=== PATIENT | female | born 2000 | race Hispanic/Latino ===

== ENCOUNTER 2023-10-11 08:25 | Day surgery (SDC) | payer OTHER ==
[2023-10-10 09:35] VITALS: BMI 25.9
[2023-10-11] MEDS ORDERED: PROPOFOL 20 ML ONE (09:05)
[2023-10-11] MEDS ORDERED: fentaNYL PF 100 MCG/2 ML SYRINGE ONE (09:05)
[2023-10-11] MEDS ORDERED: Oxymetazoline HCl 0.05% (30 ML BOT) ONE ×2 (09:34→10:14)
[2023-10-11 10:07] LABS: Hematocrit 44.6 % (36.0-47.0)
[2023-10-11] MEDS ORDERED: EPINEPHrine 1 MG/ML VIAL ONE (10:14)
[2023-10-11] MEDS ORDERED: Ferric Subsulfate 8 ML TOPICAL SOLN ONE (10:14)
[2023-10-11] MEDS ORDERED: Lidocaine 1% (PF) 30 ML VIAL ONE (10:14)
[2023-10-11] MEDS ORDERED: Ondansetron PF 4 MG/2 ML Vial ONE (10:45)
[2023-10-11] MEDS ORDERED: PHENYLEPHRINE-NS 100 MCG/ML 10 ML SYRINGE ONE (11:08)
[2023-10-11] MEDS ORDERED: fentaNYL 50 mcg/mL 1 mL Vial ONE ×2 (12:02→12:35)
[2023-10-11] MEDS ORDERED: Morphine 2 MG/ML VIAL ONE (13:23)
[2023-10-11] MEDS ORDERED: Hydrocodone-Acetamin 15 ML UDCUP ONE ×2 (13:59→14:00)
== END 2023-10-11 14:45 | disposition home or self-care (01) ==
LOC: SDC 08:25
PROVIDERS: ATTEND Specialist
PROC: 09TU8ZZ Resection of Right Ethmoid Sinus, Via Natural or Artificial Opening Endoscopic (ICD-10-PCS; principal; 2023-10-11)
PROC: 09TV8ZZ Resection of Left Ethmoid Sinus, Via Natural or Artificial Opening Endoscopic (ICD-10-PCS; principal; 2023-10-11)
PROC: 0CTPXZZ Resection of Tonsils, External Approach (ICD-10-PCS; principal; 2023-10-11)
PROC: 0CTQXZZ Resection of Adenoids, External Approach (ICD-10-PCS; principal; 2023-10-11)
DX: J35.01 Chronic tonsillitis (principal); J34.3 Hypertrophy of nasal turbinates; G47.30 Sleep apnea, unspecified; J01.91 Acute recurrent sinusitis, unspecified; J03.91 Acute recurrent tonsillitis, unspecified; J45.909 Unspecified asthma, uncomplicated; Z98.890 Other specified postprocedural states; Z79.899 Other long term (current) drug therapy; J01.21 Acute recurrent ethmoidal sinusitis; J32.2 Chronic ethmoidal sinusitis
CPT/HCPCS: 85014; 88304; J0171; J2001; J2272; J2405; J2704; J3010